=== PATIENT | female | born 1970 | race African-American/Black ===

== ENCOUNTER 2019-09-27 03:51 | Emergency (ER) | payer MEDICAID ==
[~2019-09-27] VITALS: Ht 157.5 cm; Wt 63.6 kg
[2019-09-27] MEDS ORDERED: FURO-93 PO (04:39)
[2019-09-27] MEDS ORDERED: ASPI-515 PO (04:39)
--- NOTE | 2019-09-27 04:42 | NUR ---
PT [place]IS[place], STATES SHE CAME IN TODAY DUE TO ANXIETY AND FEELING LIKE SHE IS FULL AND CONSTIPATED (STARTED YESTERDAY), AND A SLIGHT HEADACHE AND GENERALIZED DISCOMFORT. PT IS RESTLESS IN THE GURNEY, ROCKING BACK AND FORTH AND CONSTANTLY MOVING AROUND. PT STATES HER FEET ARE SWOLLEN WELL. PULSES 2+, NO SWELLING NOTED BY THIS RN. SKIN WARM AND DRY. DIONY TALBOT AT FOR EVAL AND POC. WCTM PT PLACED ON BP AND SPO2 MONITORING.
[2019-09-27] MEDS ORDERED: LORazepam 1MG TABLET ONE (04:49)
[2019-09-27] MEDS ORDERED: LORazepam 1MG TABLET PO ONE (05:00)
--- NOTE | 2019-09-27 05:04 | NUR ---
PT MEDICATED PER APR, UA SENT TO LAB, PT SEEMS ANXIOUS AT THIS TIME. NAD, NO CHANGE IN CONDITION.WCTM
[2019-09-27 05:21] LABS: MICROSCOPIC INDICATED
[2019-09-27 05:28] VITALS: BP 158/67
[2019-09-27 05:37] LABS: ALANINE AMINOTRANSFERASE 18 U/L (12-78); ALBUMIN 2.9 g/dL (3.4-5.0); ANION GAP 6 mmol/L (5-15); CALCIUM 8.5 mg/dL (8.5-10.1); CHLORIDE 110 mmol/L (98-107)
[2019-09-27 05:42] LABS: ALKALINE PHOSPHATASE 174 U/L (45-117); BILIRUBIN,TOTAL 0.9 mg/dL (0.2-1.0); TOTAL PROTEIN 7.3 g/dL (6.4-8.2)
--- NOTE | 2019-09-27 05:48 | NUR ---
PT RESTING ON HIPOLITO, RN TO BS, UPDATED ON POC. PT STATES "THAT ANXIETY PILL DIDNT WORK AT ALL, I NEED ANOTHER ONE". PT ALSO STATES I FORGOT TO MENTION THAT "I HAVE A RASH AND AM SUPER ITCHY, I AM ABOUT TO SCRATCH MY SKIN OFF". NOTIFIED PT MEDICATED PER APR. . VSS. WAITING FOR TEST RESULTS, WCTM
[2019-09-27] MEDS ORDERED: hydrOXyzine 50MG TABLET ONE (05:53)
[2019-09-27 05:57] LABS: MD YES; MEAN CORPUSCULAR HEMOGLOBIN 21.1 pg (27.0-34.8); MEAN CORPUSCULAR HGB CONC 30.5 g/dL (32.4-35.8); MEAN CORPUSCULAR VOLUME 69.1 fL (80-100); MEAN PLATELET VOLUME 13.7 fL (7.4-10.4); PLATELET COUNT 115 x10^3/uL (130-400); RED BLOOD COUNT 4.85 x10^6/uL (3.82-5.3); RED CELL DISTRIBUTION WIDTH 23.2 % (9.6-15.2)
[2019-09-27 06:00] LABS: ANISOCYTOSIS 2+; BAND#(MANUAL) 0.05 x10^3/uL; BANDS%(MANUAL) 1 % (0-7); EOS#(MANUAL) 0.21 x10^3/uL (0.0-0.4); EOS% (MANUAL) 4 % (1-7); HYPOCHROMIA 1+; LYMPH#(MANUAL) 2.97 x10^3/uL (1-3.4); LYMPHS% (MANUAL) 56 % (22-44); MICROCYTOSIS 2+; MONOS#(MANUAL) 0.32 x10^3/uL (0.3-2.7); MONOS% (MANUAL) 6 % (2-9); SEG#(MANUAL) 1.75 x10^3/uL (1.8-6.8); SEGS% (MANUAL) 33 % (42-75)
[2019-09-27] MEDS ORDERED: hydrOXyzine 50MG TABLET PO ONE (06:00)
[2019-09-27 06:02] LABS: OVALOCYTES 1+
[2019-09-27 06:04] LABS: <PLATELET ESTIMATE> DECREASED; LARGE PLATELETS 1+; TARGET CELLS 1+
[2019-09-27 06:05] LABS: POLYCHROMASIA 1+
--- NOTE | 2019-09-27 06:16 | NUR ---
Patient given discharge instructions and they have confirmed that they understand the instructions. Patient ambulatory with steady gait. NAD, VSS. PT DENIES ADDITIONAL NEEDS AT THIS TIME, QUESTIONS ANSWERED APPROPRIATELY. NO PT BELONGINGS LEFT IN ROOM AT TIME OF DC.
== END 2019-09-27 06:40 | disposition home or self-care (01) ==
LOC: ED 06:04
DX: J18.1 Lobar pneumonia, unspecified organism (principal); I50.22 Chronic systolic (congestive) heart failure; R94.31 Abnormal electrocardiogram [ECG] [EKG]; F41.1 Generalized anxiety disorder; E11.9 Type 2 diabetes mellitus without complications
CPT/HCPCS: 36415; 74022; 80053; 81001; 83690; 84703; 85025; 87086; 93005; 99285